=== PATIENT | female | born 1925 | race Asian ===

== ENCOUNTER 2017-06-14 23:26 | Inpatient (IN) | payer MEDICARE, MEDICAID ==
[2017-06-14] MEDS ORDERED: cefTRIAXone 1 GM in Sodium Chloride 0.9% 50 ML IV ONE (23:55)
--- NOTE | 2017-06-15 00:02 | ED Physician Chart ---
ED Chief Complaint/HPI - Patient Information Date Seen:: 06/14/17 Time Seen:: 23:30 Chief Complaint:: Fall History of Present Illness:: onset x one hour of unwitnessed fall and syncope with facial and head bruises and lacerations; pt's last tetanus shot: > 5 years; no report of H/As, neck pain , C/P, SOB, Abd. Pain, A/N/V/D/C, fever, chills, or urinary s/s Allergies:: Allergies Allergy/AdvReac Type Severity Reaction Status Date / Time No Known Allergies Allergy Verified 06/14/17 23:44 Vitals:: Vital Signs - 8 hr 06/14/17 23:30 Temp 97.7 F HR 64 RR 16 BP 150/61 O2 Sat % 98 Historian:: Patient, EMS Review:: Nurse's Note Reviewed, Old Chart Reviewed, EMS run form Reviewed ED Review of Systems - Review of Systems General/Constitutional: No fever, No chills, No weight loss, No weakness, No diaphoresis, No edema, No loss of appetite Skin: No skin lesions, No rash, No bruising Head: No headache, No light-headedness Eyes: No loss of vision, No pain, No diplopia ENT: No earache, No nasal drainage, No sore throat, No tinnitus Neck: No neck pain, No swelling, No thyromegaly, No stiffness, No mass noted Cardio Vascular: No chest pain, No palpitations, No PND, No orthopnea, No edema Pulmonary: No SOB, No cough, No sputum, No wheezing GI: No nausea, No vomiting, No diarrhea, No pain, No melena, No hematochezia, No constipation, No hematemesis G/U: No dysuria, No frequency, No hematuria, No nacturia [employer]yer: No vaginal discharge, No abnormal vaginal bleed, No contraction Musculoskeletal: No bone or joint pain, No back pain, No muscle pain Endocrine: No polyuria, No polydipsia Psychiatric: Prior psych history, No depression, Anxiety, No suicidal ideation, No homicidal ideation, Auditory hallucination, No visual hallucination Hematopoietic: No bruising, No lymphadenopathy Allergic/Immuno: No urticaria, No angioedema Neurological: No syncope, No focal symptoms, No weakness, No paresthesia, No headache, No seizure, No dizziness, Confusion, No vertigo ED Past Medical History - Past Medical History Obtainable: Yes Past Medical History: HTN, CAD, Asthma/COPD, Dyslipidemia, Dementia, Cataract Family History: Heart disease, Diabetes Melitus, HTN Social History: Non Smoker, No Alcohol, No Drug Use, Single, Care Facility Surgical History: None Psychiatricy History: Bipolar, Dementia Medication: Reviewed Family Medical History - Family Member Mother History Unknown: Yes ED Physical Exam - Physical Examination General/Constitutional: Awake, Well-developed, well-nourished, Alert, No distress, GCS 15, Non-toxic appearing, Ambulatory Other Head comments:: Left Eyebrow and Left Parietal Scalp Lacerations; no FBs; good NV dfunctions Eyes: Lids, conjuctiva normal, PERRL, EOMI Skin: Nl inspection, No rash, No skin lesions, No ecchymosis, Well hydrated, No lymphadenopathy ENMT: External ears, nose nl, Nasal exam nl, Lips, teeth, gums nl Neck: Nontender, Full ROM w/o pain, No JVD, No nuchal rigidity, No bruit, No mass, No stridor Other Neck comments:: supple; no meningeal signs; no cervical tenderness; no bruits Respiratory: Nl effort/Exclusion, Clear to Auscultation, No Wheeze/Rhonchi/Rales Cardio Vascular: RRR, No murmur, gallop, rubs, NL S1 S2, Carotid/Femoral/Distal pulses equal bilaterally GI: No tenderness/rebounding/guarding, No organomegaly, No hernia, Normal BS's, Nondistended, No mass/bruits, No McBurney tenderness Other GI comments:: no pulsatile masses : No CVA tenderness Extremities: No tenderness or effusion, Full ROM, normal strength in all extremities, No edema, Normal digits & nails Neuro/Psych: Alert/oriented, DTR's symmetric, Normal sensory exam, Normal motor strength, Judgement/insight normal, Mood normal, Normal gait, No focal deficits Misc: Normal back, No paraspinal tenderness ED Labs/Radiology/EKG Results - Lab Results Comments:: Na+: 130; BUN: 32; BNP: elevated - Radiology Results Comments:: NAD - EKG Interpretations EKG Time:: 00:12 Rate & Rhythm: 60; NSR Comments:: non-specific st-t changes ED Assessment - Procedures Informed Consent: Procedure/risk/benefits explained by MD: Yes Laceration Type:: Simple Wound Length: 4 cm Prep/Irrigation:: thorough cleansing and irrigation with betadine and saline; Dermabond/ Streistrips applied; Neosporin Ointment and dressings applied ED Septic Shock - . Is Septic Shock (SBP<90, OR Lactate>4 mmol\L) present?: No - <6hrs of presentation: Vital Signs: Vital Signs - 8 hr 06/14/17 23:30 Temp 97.7 F HR 64 RR 16 BP 150/61 O2 Sat % 98 ED Reassessment (Disposition) - Reassessment Reassessment Condition:: Improved - Diagnosis Diagnosis:: Fall; Syncope; TIA; Head Injury; Facial and Scalp Lacerations; Dementia; S/P Fall; Hyponatremia; CHF; Dehydration - Aftercare/Follow up Instructions Aftercare/Follow-Up Instructions:: Counseled pt regarding lab results/diagnosis & need follow up, Counseled pt & family regarding lab results/diagnosis & need follow up - Patient Disposition Discharge/Transfer:: Acute Care w/in this hosp Accepting Physician:: Dr. Al Time Called:: [id number] Time Responded:: 23:55 Admitted to:: Telemetry Spoke to:: Dr. Al Admitting Medical Physician:: Dr. Al Condition at Disposition:: Stable, Improved
[2017-06-15 00:24] LABS: % BASOPHILS 0.9 % (0.0-2.0); % EOSINOPHILS 1.6 % (0.0-5.0); % MONOCYTES 9.9 % (2.0-10.0); % NEUTROPHILS 47.6 % (40.0-80.0); BASOPHILE ABSOLUTE 0.1 Th/cumm (0-0.2); EOSINOPHILE ABSOLUTE 0.1 Th/cmm (0.1-0.4); HEMATOCRIT 37.4 % (41.0-60); HEMOGLOBIN 12.5 gm/dL (12-16); LYMPHOCYTE ABSOLUTE 3.6 Th/cmm (1.5-3.0); MEAN CELL VOLUME 87.1 fl (81-100); MEAN CORPUSCULAR HEMOGLOBIN 29.2 pg (27.0-31.0); MEAN CORPUSCULAR HGB CONC 33.5 pg (28.0-36.0); MEAN PLATELET VOLUME 8.8 fl; MONOCYTE ABSOLUTE 0.9 Th/cmm (0.3-1.0); NEUTROPHILE ABSOLUTE 4.2 Th/cmm (1.8-8.0); PLATELET COUNT 160 Th/cmm (150-400); RED BLOOD COUNT 4.29 Mil/cmm (3.80-5.20); RED CELL DISTRIBUTION WIDTH 15.2 % (11.5-20.0); WHITE BLOOD COUNT 8.9 Th/cmm (4.8-10.8)
[2017-06-15 00:26] LABS: URINE MICROSCOPIC INDICATED? YES; URINE SOURCE MIDSTREAM
[2017-06-15 00:32] LABS: URINE BILIRUBIN NEGATIVE (NEGATIVE); URINE BLOOD MODERATE (NEGATIVE); URINE GLUCOSE (UA) NEGATIVE (NEGATIVE); URINE KETONE NEGATIVE (NEGATIVE); URINE LEUKOCYTE ESTERASE NEGATIVE (NEGATIVE); URINE NITRATE NEGATIVE (NEGATIVE); URINE PROTEIN NEGATIVE (NEGATIVE); URINE UROBILINOGEN 0.2 E.U./dL (0.2 - 1.0)
[2017-06-15 00:35] LABS: URINE CLARITY CLEAR (CLEAR); URINE COLOR YELLOW
[2017-06-15 00:37] LABS: INR 0.88 (0.5-1.4)
[2017-06-15 00:44] LABS: ALB/GLOB RATIO 1.1 (1.0-1.8); ALBUMIN 3.7 gm/dL (3.7-5.3); ALKALINE PHOSPHATASE 63 U/L (34-104); ANION GAP 9.9 (7.0-16.0); BILIRUBIN,TOTAL 0.2 mg/dL (0.3-1.0); BUN - UREA NITROGEN 32 mg/dL (7-25); CALCIUM SERUM 9.4 mg/dL (8.6-10.3); CARBON DIOXIDE 25.8 mEq/L (21.0-31.0); CHLORIDE 98 mEq/L (98-107); CHOLESTEROL 172 mg/dL (<200); CREATININE - SERUM 1.1 mg/dL (0.6-1.2); CREATININE KINASE 61 U/L (30-223); GLUCOSE 88 mg/dL (70-105); HDL -HIGH DENSITY LIPOPROTEIN 55 mg/dL (23-92); POTASSIUM SERUM 3.7 mEq/L (3.5-5.1); SGOT 18 U/L (13-39); SGPT/ALT 13 U/L (7-52); SODIUM SERUM 130 mEq/L (136-145); TOTAL PROTEIN,SERUM 7.1 gm/dL (6.0-8.3); TRIGLYCERIDES 191 mg/dL (<150)
[2017-06-15 00:49] LABS: URINE BACTERIA FEW /hpf (NONE SEEN); URINE EPITHELIAL CELLS FEW /lpf (FEW); URINE RBC 0-2 /hpf (0-5); URINE WBC 0-2 /hpf (0-5)
[2017-06-15] MEDS ORDERED: Sodium Chloride 0.9% 1,000 ML IV ONE (05:23)
[2017-06-15] MEDS ORDERED: Morphine Sulfate 2 mg/mL 1mL Syr IVP PRN (07:16)
[2017-06-15] MEDS ORDERED: Potassium Chloride 20 mEq ER Tab PO PRN (07:16)
[2017-06-15] MEDS ORDERED: Mag Sulfate 2gm/50mL Premix 2 GM/50 ML BAG IV PRN (07:16)
--- NOTE | 2017-06-15 08:30 | Diagnostic Imaging Report ---
Head CT without intravenous contrast Indication: Trauma Comparison: None Technique: Axial images were obtained from the vertex to the skull base without IV contrast. Coronal reconstructions were made. Total DLP: 680, [id number] FINDINGS: Images of the brain obtained without contrast demonstrate no evidence of an acute hemorrhage. Atrophy is noted. Moderate white matter disease is noted. The ventricles and basal cisterns are patent. No mass effect or midline shift. There is soft tissue injury along the left frontal and left-sided zygomatic region. Few tiny pockets of gas are noted in these regions No evidence of a skull fracture. IMPRESSION: Soft tissue injury involving the left frontal left-sided zygomatic region with few pint pockets of gas. No evidence of a skull fracture. No evidence of an acute intracranial hemorrhage. Atrophy. Moderate supratentorial white matter disease which is nonspecific and may be due to chronic microvessel ischemia.
--- NOTE | 2017-06-15 08:33 | Diagnostic Imaging Report ---
Portable chest x-ray Time: 0814 hours History: Pain syncope Allowing for portable technique the heart size is normal. No focal pulmonary parenchymal processes. No hilar or mediastinal abnormalities. COPD changes are noted bilaterally. The aortic arch calcified. Impression: No acute abnormalities. COPD changes are noted.
[2017-06-15] MEDS ORDERED: Non-Formulary Item 1 EA (Tiotropium Bromide [Spiriva] 18 MCG) INH SCH (09:00)
[2017-06-15] MEDS ORDERED: Non-Formulary Item 1 EA (Nutritional Supplement [Resource 2.0] 60 ML) PO SCH (09:00)
[2017-06-15] MEDS: Aspirin 81mg Chewable Tab PO SCH (09:37)
[2017-06-15] MEDS: Sodium Chloride 0.9% 1,000 ML IV SCH ×2 (09:39→23:41)
--- NOTE | 2017-06-15 10:08 | History & Physical ---
ADMIT DATE: 06/15/2017 CHIEF COMPLAINT: Fall. HISTORY OF PRESENT ILLNESS: The patient is a pleasant, but fatigued 89-year-old female. She is a patient of mine at [facility]. She has been there for PT rehab and management of multiple issues. She has history of hypertension and malnutrition along with the constipation, mild Alzheimer dementia and depression as well. She sustained a mechanical fall. She had a significant contusion, left side of the face along with ecchymosis around the eye. There was head trauma as well. She was sent to the hospital for further workup and treatment. PAST MEDICAL HISTORY: Significant for hypertension, malnutrition, depression. SOCIAL HISTORY: No history of alcohol, tobacco, or drug abuse. FAMILY HISTORY: Noncontributory. ALLERGIES: No known drug allergies. SURGICAL HISTORY: No recent major surgeries. FAMILY HISTORY: Noncontributory. MEDICATIONS: All medications are reviewed and reconciled. REVIEW OF SYSTEMS: GENERAL: Positive recent fatigue and decreased appetite. HEENT: Positive for recent head trauma yesterday and there is some decreased vision in the left eye is because of the swelling; however, when I help to open her eyes, she can see without any issues. NECK: No recent tracheal deviation. ABDOMEN: No recent pain or distension. SKIN: Positive for laceration on the left side of the face and forehead. PSYCHIATRIC: She has history of depression. NEUROLOGIC: No history of stroke or seizure. MUSCULOSKELETAL: Positive for unsteady gait. GENITOURINARY: Denies any increased urinary frequency or urgency. PHYSICAL EXAMINATION: VITAL SIGNS: Temperature 97.8 degrees, heart rate is 58, respiration is 18, blood pressure 115/45. Currently on no pain. GENERAL: No acute distress. She is awake, alert. EYES: Right eye does not have any issues. No discharge. Extraocular muscles are intact. The left eye is closed as the patient likes to keep it close because of inflammation, erythema; however, when I helped her open it, there are no issues with eye, so she has extraocular muscles are intact. No discharge and vision is intact. SKIN: She has laceration, left side of the face and a cut above the left eye and Steri-Strips are intact. No active bleeding. EXTREMITIES: No edema. RESPIRATORY: Decreased breath sounds bilaterally. ABDOMEN: Nontender, nondistended. NEUROLOGIC: No evidence of acute stroke or seizure activity. MUSCULOSKELETAL: Decreased muscle strength in the lower extremities. PSYCHIATRIC: No psychosis or hallucinations. LABS: Sodium 130, potassium 3.7, chloride 98, bicarbonate 25.8, BUN 32, creatinine 1.1, total bilirubin 0.2. BNP is 246. Triglycerides 191, cholesterol 172, HDL is 55. White count is 8.9, hemoglobin is 12.5, platelet count 160,000. The patient's chest x-ray and a CT of the head did not show any acute abnormalities. ASSESSMENT AND PLAN: 1. Disorder of the autonomic nervous system. 2. Syncope. 3. Closed head injury. 4. Facial contusion. 5. Hypertension. 6. Unsteady gait. 7. Hyponatremia. PLAN: Initially, it was thought that the patient tripped and fell. However, upon investigation by calling the facility, it appears that she had a possible syncopal episode and she has been tripping as well. I have ordered a carotid ultrasound, CT that is negative. UA is negative. She also has hyponatremia. Continue IV fluids and normal saline. Follow up on chemistry panel tomorrow. She can benefit from PT. Continue wound care for the left facial contusion and a cut above the left eye. I will consider PT evaluation once the patient is able to participate. I have ordered a cardiac diet. HOME MEDICATIONS: Reviewed and reconciled. JOB# [id number]
[2017-06-15] MEDS: Non-Formulary Item 1 EA (Fluticasone/Salmeterol [Advair 250-50 Diskus] 1 PUFF) INH SCH ×2 (10:10→17:27)
--- NOTE | 2017-06-15 12:17 | Diagnostic Imaging Report ---
Carotid ultrasound HISTORY: Syncope COMPARISON: None Technique: Longitudinal and transverse sonographic sector images of the carotid arteries were obtained with doppler analysis. FINDINGS: Exam of the right side demonstrates moderate to severe atherosclerotic vascular disease with areas of calcified plaque formation. Increased velocity of the right ECA is noted at 196 cm/second. Increased velocity right proximal ICA is noted at 148 cm/second. Elevated right ICA/CCA ratio at 3.14 is noted. Exam of the left side demonstrates diffuse atherosclerotic vascular disease with areas of calcified plaque formation. Increased velocity of the left carotid bulb is seen at 181 cm/second. Increased velocity of the left distal ICAs also see at 149 cm/second. The left velocity ratio is within normal limits. Antegrade vertebral artery flow is demonstrated bilaterally. IMPRESSION: Diffuse bilateral atherosclerotic vascular disease with areas of increased velocities, as detailed above. Findings suggest at least 50-69% vessel narrowing. Consider further assessment is findings with dedicated CT angiography of the neck.
[2017-06-15] MEDS: Venlafaxine HCl ER 37.5 mg Tab PO SCH (13:31)
[2017-06-15] MEDS ORDERED: Ipratropium Neb 0.5 mg/2.5 mL UD HHN SCH (15:00)
[2017-06-15] MEDS ORDERED: Pneumococcal Vaccine 0.5 mL Vial IM ONE (16:41)
[2017-06-15 19:57] LABS: A1C % 5.2 % (4.0-6.0)
[2017-06-16 05:34] LABS: % BASOPHILS 0.3 % (0.0-2.0); % EOSINOPHILS 1.7 % (0.0-5.0); % LYMPHOCYTES 29.4 % (20.0-50.0); % MONOCYTES 9.7 % (2.0-10.0); % NEUTROPHILS 58.9 % (40.0-80.0); EOSINOPHILE ABSOLUTE 0.1 Th/cmm (0.1-0.4); HEMATOCRIT 36.1 % (41.0-60); HEMOGLOBIN 12.2 gm/dL (12-16); LYMPHOCYTE ABSOLUTE 2.4 Th/cmm (1.5-3.0); MEAN CELL VOLUME 87.2 fl (81-100); MEAN CORPUSCULAR HEMOGLOBIN 29.4 pg (27.0-31.0); MEAN CORPUSCULAR HGB CONC 33.8 pg (28.0-36.0); MEAN PLATELET VOLUME 8.7 fl; MONOCYTE ABSOLUTE 0.8 Th/cmm (0.3-1.0); NEUTROPHILE ABSOLUTE 4.8 Th/cmm (1.8-8.0); PLATELET COUNT 146 Th/cmm (150-400); RED BLOOD COUNT 4.14 Mil/cmm (3.80-5.20); RED CELL DISTRIBUTION WIDTH 15.1 % (11.5-20.0); WHITE BLOOD COUNT 8.1 Th/cmm (4.8-10.8)
[2017-06-16 05:58] LABS: ANION GAP 6.1 (7.0-16.0); BUN - UREA NITROGEN 25 mg/dL (7-25); CALCIUM SERUM 8.8 mg/dL (8.6-10.3); CARBON DIOXIDE 27.8 mEq/L (21.0-31.0); CHLORIDE 108 mEq/L (98-107); CREATININE - SERUM 0.8 mg/dL (0.6-1.2); GLUCOSE 78 mg/dL (70-105); POTASSIUM SERUM 3.9 mEq/L (3.5-5.1); SODIUM SERUM 138 mEq/L (136-145)
[2017-06-16] MEDS: Aspirin 81mg Chewable Tab PO SCH (09:38)
[2017-06-16] MEDS: Venlafaxine HCl ER 37.5 mg Tab PO SCH (09:40)
[2017-06-16] MEDS ORDERED: Budesonide 0.5 Mg/2 mL Ud HHN SCH (11:00)
[2017-06-16] MEDS ORDERED: Albuterol Nebulizer 2.5mg/3mL HHN SCH (11:00)
[2017-06-16] MEDS ORDERED: VTE Chemical Prophylaxis Screen/Admission MC PRN (15:58)
== END 2017-06-16 16:00 | disposition home or self-care (01) | DRG 74 ==
LOC: ER 23:26 → TELE 23:55
PROVIDERS: ADMIT General Practice; ATTEND General Practice
PROC: 0HQ0XZZ Repair Scalp Skin, External Approach (ICD-10-PCS; principal; 2017-06-14)
DX: G90.9 Disorder of the autonomic nervous system, unspecified (principal); E87.1 Hypo-osmolality and hyponatremia; I50.9 Heart failure, unspecified; E86.0 Dehydration; I11.0 Hypertensive heart disease with heart failure; G45.9 Transient cerebral ischemic attack, unspecified; G30.9 Alzheimer's disease, unspecified; F02.80 Dementia in other diseases classified elsewhere, unspecified severity, without behavioral disturbance, psychotic disturbance, mood disturbance, and anxiety; S01.01XA Laceration without foreign body of scalp, initial encounter; J44.9 Chronic obstructive pulmonary disease, unspecified; R55 Syncope and collapse; R26.81 Unsteadiness on feet; I25.10 Atherosclerotic heart disease of native coronary artery without angina pectoris; E78.5 Hyperlipidemia, unspecified; F31.9 Bipolar disorder, unspecified; S01.81XA Laceration without foreign body of other part of head, initial encounter; W01.0XXA Fall on same level from slipping, tripping and stumbling without subsequent striking against object, initial encounter; Y93.89 Activity, other specified; Y92.89 Other specified places as the place of occurrence of the external cause; Y99.8 Other external cause status; Z83.3 Family history of diabetes mellitus; Z82.49 Family history of ischemic heart disease and other diseases of the circulatory system
CPT/HCPCS: 12002; 36415-UA; 70450-TC; 71045-TC; 80048-TC; 80053-TC; 80061-TC; 81001-TC; 82550-TC; 83036-90; 83880-TC; 84484-TC; 85025-TC; 85610-TC; 87086-90; 93005; 93880-TC; 94760; J0696; J2060; J7030; Z7610